=== PATIENT | female | born 1980 | race Caucasian/White ===

== ENCOUNTER 2018-03-19 16:08 | Emergency (ER) | payer OTHER ==
[~2018-03-19] VITALS: Ht 160 cm; Wt 84.8 kg
[2018-03-19] MEDS ORDERED: VENTOLIN HFA 1818 GM INH (16:19)
[2018-03-19 17:53] LABS: ABSOLUTE EOSINOPHILS 0.7 thou/uL (0.0-0.7); ABSOLUTE LYMPHOCYTES 1.7 thou/uL (0.8-5.3); ABSOLUTE MONOCYTES 0.7 thou/uL (0.0-1.2); ABSOLUTE NEUTROPHILS 7.3 thou/uL (1.6-8.1); BASOPHILS 0.4 %; EOSINOPHILS 6.5 %; HEMATOCRIT 39.5 % (37.0-47.0); HEMOGLOBIN 13.6 gm/dL (12.0-15.0); LYMPHOCYTES 16.2 %; MCH 31.3 pg (26.0-34.0); MCHC 34.4 g/dL (28.0-37.0); MONOCYTES 6.7 %; NUCLEATED RBCS 0 /100WBC; PLATELET COUNT* 148 thou/uL (150-400); POLYS 70.2 %; RBC 4.34 mil/uL (4.20-5.00); RDW-CV 13.1 % (10.5-14.5); WBC 10.4 thou/uL (4.0-11.0)
[2018-03-19 17:57] LABS: ANION GAP 8 mmol/L (7-16); BUN 14 mg/dL (7-18); CALCIUM 9.1 mg/dL (8.5-10.1); CHLORIDE 102 mmol/L (98-107); CO2 24 mmol/L (21-32); CREATININE 0.6 mg/dL (0.6-1.3); GLUCOSE 95 mg/dL (70-99); POTASSIUM 3.3 mmol/L (3.5-5.1); SODIUM 134 mmol/L (136-145)
[2018-03-19 18:03] LABS: ALBUMIN 3.5 g/dL (3.4-5.0); ALKALINE PHOSPHATASE 49 U/L (46-116); SGOT 13 U/L (15-37); SGPT 21 U/L (30-65); TOTAL BILIRUBIN 0.1 mg/dL (<0.1-1.0); TOTAL PROTEIN 7.3 g/dL (6.4-8.2); TROPONIN-I LEVEL <0.06 ng/mL (<0.06)
[2018-03-19] MEDS ORDERED: PROAIR HFA8.5 GM INH (18:23)
[2018-03-19] MEDS ORDERED: PREDNISONE 20 M20 M1 PO (18:23)
[2018-03-19] MEDS ORDERED: KEFLEX500 M1 PO (18:23)
[2018-03-19] MEDS ORDERED: CLARITIN10 MG PO (18:24)
[2018-03-19 19:10] VITALS: BP 127/81
--- NOTE | 2018-03-20 13:53 | EKG ---
[place] [address] ELECTROCARDIOGRAM REPORT Name: MALENA ANSARI Room: [facility]#: [id number] Admission: 03/19/18 Attend Phys: Discharge: 03/19/18 Date of : 82 Report #: [id number] THIS REPORT FOR: //name// [facility] ED Test Date: 2018-03-19 Test Time: 16:12:19 Pat Name: MALENA ANSARI Department: Room: Gender: F Installation Service Representative: : 1980 Requested By: Mali Womack Order Number: [id number] MD: Yfn Hale Measurements Intervals [place] Rate: 81 P: 46 WY: 154 QRS: -28 QRSD: 95 T: 41 QT: 360 QTc: 418 Interpretive Statements Sinus rhythm Probable left ventricular hypertrophy Baseline wander in lead(s) III,aVF No previous ECG available for comparison Electronically Signed On 03-20-2018 13:53:53 [employer] CUTTING INSPECTOR by Yfn Hale [email or web address] <ELECTRONICALLY SIGNED> By: Yfn Hale MD, [facility] 03/20/18 1353 D: [id number] Yfn Hale MD, FACC /EPI
== END 2018-03-19 19:10 | disposition home or self-care (01) ==
LOC: M.ERS 16:08
PROVIDERS: Physician Assistant
DX: O99.511 Diseases of the respiratory system complicating pregnancy, first trimester (principal); Z3A.01 Less than 8 weeks gestation of pregnancy; J20.9 Acute bronchitis, unspecified

== ENCOUNTER 2021-04-23 16:35 | Emergency (ER) | payer OTHER ==
[~2021-04-23] VITALS: Ht 160 cm; Wt 87.5 kg
[~2021-04-23 16:35] MED LIST: CLARITIN10 MG PO; KEFLEX500 M1 PO; PREDNISONE 20 M20 M1 PO; PROAIR HFA8.5 GM INH; VENTOLIN HFA 1818 GM INH
[2021-04-23] MEDS ORDERED: KEFLEX250 MG PO (19:16)
[2021-04-23 19:39] VITALS: BP 147/78
== END 2021-04-23 19:39 | disposition home or self-care (01) ==
LOC: M.ERS 16:35
DX: L72.3 Sebaceous cyst (principal); J45.909 Unspecified asthma, uncomplicated; Z79.2 Long term (current) use of antibiotics; Z79.899 Other long term (current) drug therapy